=== PATIENT | female | born 2005 | race Caucasian/White ===

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

== ENCOUNTER 2025-04-07 21:31 | Emergency (ER) | payer OTHER, SELFPAY ==
[2025-04-07 21:33] VITALS: BP 113/76
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
[2025-04-07] MEDS: NSS 1000 IV (23:05)
[2025-04-07] MEDS: ZOFRAN 4 MG IV (23:06)
[2025-04-08 00:28] VITALS: BP 112/75
[2025-04-08] MEDS: PROTONIX IV 40 MG IV (01:08)
== END 2025-04-08 01:25 | disposition home or self-care (01) ==
LOC: EMR 21:31
PROVIDERS: EMERGENCY PHYSICIAN Emergency Medicine; FAMILY PHYSICIAN Family Medicine
DX: R11.2 Nausea with vomiting, unspecified (principal); L71.9 Rosacea, unspecified; K21.9 Gastro-esophageal reflux disease without esophagitis; F41.9 Anxiety disorder, unspecified
CPT/HCPCS: 99282; 96374 ×2; 96361

== ENCOUNTER 2025-05-04 18:11 | Emergency (ER) | payer OTHER, SELFPAY ==
[2025-05-04 18:13] VITALS: BP 116/84
[2025-05-04] MEDS: ZOFRAN 4 MG IV (19:00)
[2025-05-04] MEDS: NSS 1000 IV (19:01)
[2025-05-04 19:12] LABS: % Basophils 0.3 % (0-2); % Immature Granulocytes 0.2 % (0-0.5); % Lymphocytes 5.2 % (20.5-51.1); % Monocytes 3.6 % (1.7-9.3); % Neutrophils 90.7 % (42.2-75.2); Absolute Lymphocytes 0.7 10^3/uL (1.2-3.4); Absolute Monocytes 0.5 10^3/uL (0.1-0.6); Absolute Neutrophils 12.3 10^3/uL (1.4-6.5); Hematocrit 38.5 % (37.0-47.0); Hemoglobin 13.8 g/dL (12.0-16.0); Mean Corp Hgb Conc. 35.8 g/dL (33.0-37.0); Mean Corpuscular Hgb 31.4 pg (27.0-31.0); Mean Corpuscular Volume 87.5 fL (81.0-99.0); Mean Platelet Volume 11.5 fL (7.4-10.4); Nucleated Red Blood Cells % 0 %; Platelet Count 185 10^3/uL (130-400); Red Cell Dist. Width 11.5 % (11.5-14.5); White Blood Cell Count 13.6 10^3/uL (4.8-10.8)
--- NOTE | 2025-05-04 19:17 | ED.GENMED ---
History of Present Illness
General
Chief Complaint: Abdominal Symptoms
Source: patient
Exam Limitations: none
Time Seen by Provider: 05/04/25 18:38
Nursing documentation reviewed up to this point in time: agreed with
History of Present Illness
History of Present Illness:
Note:
CHIEF COMPLAINT(S)
Nausea and vomiting.
HISTORY OF PRESENT ILLNESS
The patient is a 20-year-old female with a history of GERD, cyclic vomiting syndrome, acid reflux who presents with nausea and non-stop vomiting associated with her menstrual cycle. Today is the first day of her period. The onset of symptoms began
around 2:00 to 2:30 PM today. She reports that the vomiting is severe and she is unable to keep anything down, including water and medications, leading to dehydration. The patient was previously treated after a similar episode on the first day of
her period last month with IV fluids and ondansetron (Zofran) via IV, which resolved the symptoms. She currently tried an oral dissolvable form of ondansetron, found to contain a milk derivative, to which she is allergic. It was replaced with a
liquid form, but she vomited shortly after ingestion. Her pain is described as cramping and has been persistent since the onset of menstruation, similar to last months episode but no worse. She experienced similar symptoms a few years ago,
episodically at night, and was told it could be a precursor to migraines. There is no fever reported, but her mother states that she extremely pale, experiences uncontrollable shakes, and has very low energy. She denies fevers or chills. She
denies any significant abdominal pain at this moment. She denies any diarrhea or constipation.
ADDITIONAL HISTORY OBTAINED FROM SOURCES OTHER THAN THE PATIENT
The patients family member reports that she has a long-standing milk allergy, is currently on doxycycline for rosacea, and that she started doxycycline in February, with the first episode of severe symptoms occurring in March.
CHRONIC MEDICAL CONDITIONS SIGNIFICANTLY AFFECTING CARE
Cyclic vomiting syndrome, acid reflux, GERD
ALLERGIES
Multiple documented allergies multiple food allergies, does get a rash with amoxicillin
MEDICATIONS
The patient is currently on doxycycline for rosacea, started in February.
REVIEW OF SYSTEMS
See HPI
PHYSICAL EXAM
General: Patient is well appearing and in no acute distress; non-toxic
Skin: Warm and dry, no rashes or lesions
Head: Normocephalic, atraumatic
Eyes: Sclera non-icteric. EOMs intact.
Cardiac: Regular rate and rhythm, no murmurs
Pulm: Normal respiratory effort, no wheezes, rales, rhonchi
Abdomen: No abdominal tenderness to palpation, no abdominal distention, normoactive bowel sounds
Neuro: CN II-XII intact, no focal neurologic deficits.
Psychiatric: Appropriate mood and affect.
PLAN
- Replenish fluids intravenously.
- Administer antiemetic medication intravenously.
- Conduct blood work to evaluate electrolyte levels due to persistent vomiting.
- Evaluate the need for OB-IT SECURITY ANALYST consultation if symptoms persist or worsen.
- Monitor response to treatment and adjust management accordingly.
DIFFERENTIAL DIAGNOSIS
The Differential Diagnosis includes, in no particular order and is not limited to:
1. Cyclic vomiting syndrome
2. Migraine-related nausea
3. Gastroenteritis
4. Dysmenorrhea
5. ovarian cyst
6. ovarian torsion
7. Gastroesophageal reflux disease
8. Peptic ulcer disease
REVIEW OF PRIOR RECORDS
Reviewed prior ER physician documentation from 04/07/2025, patient seen for nausea and vomiting, she was treated with IV fluids and Zofran and was able to tolerate oral intake afterwards.
Reviewed ER/documentation from 04/26/2024 patient seen for chest pain had unremarkable workup and was discharged
No discharge summaries in [facility] to review
MDM/DISPOSITION
The patient is a 20-year-old female with a history of GERD, cyclic vomiting syndrome, acid reflux who presents with nausea and non-stop vomiting associated with her menstrual cycle. Today is the first day of her period. The onset of symptoms began
around 2:00 to 2:30 PM today. She reports that the vomiting is severe and she is unable to keep anything down. She was seen here in the emergency department last month after a similar episode. On physical exam, she is well-appearing in no acute
distress she is actively dry heaving. She was given IV fluids and Zofran still had active symptoms. She was subsequently given Reglan Benadryl however by the time that the nurses try to get these medications, patient states that she was starting
to feel better. She is now tolerating water without vomiting. On my reevaluation, she appears much better her skin is better color and she is not vomiting. Because of persistent pelvic pain with severe symptoms, did obtain ultrasound which did
not show any evidence of ovarian cyst or ovarian torsion. Suspect gastroenteritis versus dysmenorrhea. Discussed follow-up with SYSTEMS PROGRAMMER. Patient stable for discharge. Patient does have liquid Zofran at home that she can take.
Past History
Past History
ED Past Medical History: GERD, Psychiatric (Anxiety), Other (Cyclic vomiting syndrome, migraines, GERD) and Other (Rosacea, seasonal allergies as well as multiple food allergies)
ED Past Surgical History: None
Social History
Tobacco: Non-smoker
Alcohol: None
Personal: Single
Living: with family
Employment: Student
Family History
Family History: Other (Noncontributory)
Phy Exam
Physical Exam
Physical Exam:
see hpi
Course
Orders/Labs/Results
Orders:
Orders
05/04/25 18:51
0.9% Sodium Chloride 1000 ml [Nss] 1,000 ml IV BOLUS
Ondansetron Injectable [Zofran] 4 mg IV NOW STA
Test Result ONCE
05/04/25 19:03
Complete Blood Count/With Diff Urgent
Comprehensive Metabolic Panel Urgent
HCG, Serum Qualitative Screen Urgent
05/04/25 19:22
Add On- LAB Urgent
Tests Added?: HCG Qualatative
05/04/25 19:23
US Pelvis Only (non-obstetric) Stat
Comment:
Reason For Exam: left sided pelvic pain
05/04/25 19:26
Diphenhydramine [Benadryl] 12.5 mg IV NOW STA
Metoclopramide [Reglan] 10 mg IV NOW STA
Abnormal Lab Results
05/04/25
19:03
WBC 13.6 H 10^3/uL
(4.8-10.8)
MCH 31.4 H pg
(27.0-31.0)
MPV 11.5 H fL
(7.4-10.4)
Absolute Neuts (auto) 12.3 H 10^3/uL
(1.4-6.5)
Absolute Lymphs (auto) 0.7 L 10^3/uL
(1.2-3.4)
Neutrophils % 90.7 H %
(42.2-75.2)
Lymphocytes % 5.2 L %
(20.5-51.1)
Chloride 109 H mmol/L
(98-107)
BUN 5 L mg/dl
(7-17)
Creatinine 0.5 L mg/dL
(0.6-1.0)
Glucose 128 H mg/dl
(70-99)
05/04/25 19:03
05/04/25 19:03
Vital Signs
Initial and Last Documented VS:
Initial Vital Signs
Temp Pulse Resp BP Pulse Ox
98.2 F 97 16 116/84 100
05/04/25 18:13 05/04/25 18:13 05/04/25 18:13 05/04/25 18:13 05/04/25 18:13
Last Documented Vital Signs
Temp Pulse Resp BP Pulse Ox
98.2 F 90 15 160/85 98
05/04/25 18:13 05/04/25 20:52 05/04/25 20:52 05/04/25 20:52 05/04/25 20:52
*Pulse Oximetry
SaO2: 100
Oxygen Mode of Delivery: Room air
Patient hypoxic: no
*Critical Care Note
Total Time (30-74mins, 75-104mins- exclusive of procedures): Not Applicable
ED Attending Note
-
Portions of this chart may have been created with voice recognition software.� Occasional wrong word or��sound alike� substitutions may have occurred due to the inherent limitations of voice recognition software.
Discharge Plan
Departure
Patient Disposition: Home (Routine Discharge)
Date of Disposition: 05/04/25
Time of Disposition: 22:26
Patient with high blood pressure during this ER visit?: Yes
Condition: Good
Discharge Problem:
Nausea & vomiting, Dysmenorrhea
Instructions: Nausea and Vomiting, Adult (DC), Painful periods, BLOOD PRESSURE
Prescriptions:
No Action
ondansetron 4 mg tablet,disintegrating
4 mg PO QID PRN (Reason: nausea and vomiting) Qty: 20 0RF
Referrals:
Osmar Negron DO [Family Provider, Family Practice]
Activity Restrictions/Additional Instructions:
Your ultrasound showed a normal-appearing uterus with endometrium measuring 0.6 cm and normal ovaries with normal vascular flow.
Please follow-up with your SYSTEMS PROGRAMMER.
You can continue to take Zofran at home as needed.
PLEASE RETURN TO EMERGENCY DEPARTMENT SHOULD YOU DEVELOP INTRACTABLE NAUSEA OR VOMITING, PERSISTENT ABDOMINAL PAIN WITH FEVERS OR CHILLS, BURNING WITH URINATION, BLOOD IN YOUR URINE, OR ANY OTHER SIGNS OR SYMPTOMS WORRISOME TO YOU.
Interventions
Interventions:
*Risk Screen - Suicide Last Done: 05/04/25 18:13
*Neglect/Abuse Screening Last Done: 05/04/25 18:13
*Nursing Disposition Last Done: 05/04/25 22:35
GE-Pzqlsq-Shaxzzthas Assessment Last Done: 05/04/25 20:06
Discharge Date and Time
Discharge Date/Time: 05/04/25 22:35
Print Language: JAPANESE
[2025-05-04 19:26] LABS: ALT (SGPT) 25 U/L (0-35); AST (SGOT) 30 U/L (14-36); Albumin 4.8 g/dl (3.5-5.0); Alkaline Phosphatase 68 U/L (38-126); Blood Urea Nitrogen 5 mg/dl (7-17); Calcium 9.4 mg/dl (8.4-10.2); Carbon Dioxide 22 mmol/L (22-30); Chloride 109 mmol/L (98-107); Glucose 128 mg/dl (70-99); Potassium 3.5 mmol/L (3.5-5.1); Sodium 142 mmol/L (135-145); Total Bilirubin 0.7 mg/dl (0.2-1.3); Total Protein 7.6 g/dl (6.3-8.2); eGFR > 60.00
[2025-05-04 19:47] LABS: HCG, Serum Qualitative Screen Negative
[2025-05-04] MEDS: REGLAN 10 MG IV (20:29)
[2025-05-04] MEDS: BENADRYL 12.5 MG IV (20:30)
[2025-05-04 20:52] VITALS: BP 160/85
== END 2025-05-04 22:35 | disposition home or self-care (01) ==
LOC: EMR 18:11
PROVIDERS: Physician Assistant; EMERGENCY PHYSICIAN Emergency Medicine; FAMILY PHYSICIAN Family Medicine
DX: N94.6 Dysmenorrhea, unspecified (principal); R11.2 Nausea with vomiting, unspecified; K21.9 Gastro-esophageal reflux disease without esophagitis
CPT/HCPCS: 99284; 96374; 96375 ×2; 96361; 76856; 80053; 84703; 85025

== ENCOUNTER → 2025-06-06 16:29 | Outpatient (REF) | payer OTHER, SELFPAY | LOC: RAD 16:29 | PROVIDERS: ATTENDING PHYSICIAN Family Medicine | DX: T18.9XXA Foreign body of alimentary tract, part unspecified, initial encounter (principal) | CPT/HCPCS: 71046; 74018 ==